=== PATIENT | female | born 1990 | race Caucasian/White ===

== ENCOUNTER 2017-10-22 08:15 | Day surgery (SDC) | payer OTHER ==
[2017-10-22 09:12] VITALS: BMI 26.1
[2017-10-22 09:19] VITALS: BP 110/66; TEMP 98.2
--- NOTE | 2017-10-22 10:12 | PDOC.LDHP ---
Labor and Delivery H&P Chief complaint: other (vaginal bleeding) HPI: 26 yo at 30.4 by 14 week sono here with complaint of finding a spot of bright red blood in her underwear this morning. She denies previous episodes of bleeding or bleeding after finding this. She denies abdominal pain, contractions , recent sexual activity, or decreased movement. Current gestational age (weeks): 30 Due date: 12/26/17 Dating criteria: second trimester ultrasound (14.2 week sono) Current complications: none Current medications: pre-anne-marie vitamins Previous surgical history: none Social history: none - Physical Exam Vital signs reviewed and normal: yes General: NAD Heart: RRR Lungs: CTAB Abdomen: NTTP Extremeties: no edema FHT: category 1, acceleration absent, absent or minimal variables [place] contractions every: none - Vaginal Exam cm dilated: 0 Effacement: 0% Station: -3 - OB Labs Blood type: B RH: negative Antibody Screen: negative HIV: negative RPR: negative HEPSAg: negative 1 hour GCT: negative GBS: unknown Urine drug screen: negative Rubella: immune - Assessment Vaginal Bleeding - Plan Plan: observation in L&D -: Likely cervicitis. UA, GC/C, VP3. Continue to monitor while labs are pending. <Laz Nj - Last Filed: 10/22/17 10:22> <Oumar Delarosa - Last Filed: 11/01/17 10:12> Allergies/Adverse Reactions: Allergies Allergy/AdvReac Type Severity Reaction Status Date / Time No Known Allergies Allergy Verified 10/22/17 09:08 Attending Addendum - Attending Addendum I personally evaluated the patient and discussed the management with Dr. Nj on 10/22/17. I agree with the History, Examination, Assessment and Plan documented above with any addition or exceptions noted below. 26 y.o. at 30.4 weeks with scant Vag bleed, now stopped. none on exam. Strip Category I, labs negative. Stable for d/c with precautions for f/u. Keep next week's appt. with Foley. <Oumar Delarosa - Last Filed: 11/01/17 10:12>
[2017-10-22 11:03] LABS: Bilirubin Negative (Negative); Blood, Urine Negative (Negative); Glucose, Urine (Dipstick) Negative (Negative); Ketone, Urine Negative (Negative); Nitrite Negative (Negative); Protein, Urine (Dipstick) Negative (Neg-Trace); Urobilinogen 0.2 mg/dL (0.2-1.0)
[2017-10-22 11:10] LABS: Bacteria/HPF Rare-Few HPF (None Seen); Hyaline Casts/LPF NONE SEEN LPF (0-3 Hyaline); RBC/HPF 0-3 HPF (0-3); Squamous Epithelial 0-3 HPF (0-3); Trichomonas/HPF 1+ HPF (None Seen)
== END 2017-10-22 12:02 | disposition home or self-care (01) ==
LOC: L&D/OP 08:15
PROVIDERS: ATTEND Family Medicine
DX: O26.853 Spotting complicating pregnancy, third trimester (principal); Z79.899 Other long term (current) drug therapy; Z3A.30 30 weeks gestation of pregnancy
CPT/HCPCS: 81001; 87480; 87491; 87510; 87591; 87660

== ENCOUNTER 2023-01-27 11:25 | Emergency (ER) | payer MEDICAID, SELFPAY ==
[2023-01-27] MEDS ORDERED: HYDROcodone/Acetaminophen 5/325 mg Tablet ONE (13:03)
[2023-01-27] MEDS ORDERED: Acetaminophen 325 MG TAB ONE (13:04)
[2023-01-27] MEDS ORDERED: Ibuprofen 800 MG TAB ONE (13:04)
== END 2023-01-27 13:40 | disposition home or self-care (01) ==
LOC: ERS 11:25
DX: M25.511 Pain in right shoulder (principal); F17.210 Nicotine dependence, cigarettes, uncomplicated; W18.30XA Fall on same level, unspecified, initial encounter